=== PATIENT | male | born 1995 | race Caucasian/White ===

== ENCOUNTER 2016-12-31 23:23 | Emergency (ER) | payer BC ==
[2017-01-01 01:36] VITALS: BP 122/71
== END 2017-01-01 01:36 | disposition home or self-care (01) ==
LOC: ED 23:23
DX: F43.0 Acute stress reaction (principal); F41.9 Anxiety disorder, unspecified
CPT/HCPCS: 82962; J2060

== ENCOUNTER 2018-06-24 16:50 | Emergency (ER) | payer BC ==
[~2018-06-24] VITALS: Ht 188 cm; Wt 104.3 kg
[2018-06-24 18:10] VITALS: BP 112/80
== END 2018-06-24 18:10 | disposition home or self-care (01) ==
LOC: ED 16:50
DX: G89.29 Other chronic pain (principal); M54.5 Low back pain; M79.604 Pain in right leg
CPT/HCPCS: J1885